=== PATIENT | female | born 1985 | race Two or more races ===

== ENCOUNTER 2016-11-20 10:20 | Inpatient (IN) | payer OTHER ==
[2016-11-18 14:39] VITALS: BMI 40.7
[~2016-11-20 10:20] MED LIST: BUPIVACAINE HCL/PF 0.5% (5MG/ML) 10 ML VIAL IJ ONE
[2016-11-20] MEDS ORDERED: BUPIVACAINE HCL/PF 0.5% (5MG/ML) 10 ML VIAL ONE (11:26)
--- NOTE | 2016-11-20 12:14 | HP ---
History & Physical Update - History History: No Change - Physical Physical: No Change - Assessment Assessment: No Change - Plan Plan: No Change Currently as noted:: Laparoscopic possible open vertical sleeve gastrectomy
[2016-11-20] MEDS ORDERED: ALBUTEROL SO4 6.7 GM HFA INHALER IH ONE (12:49)
[2016-11-20] MEDS ORDERED: ceFAZolin SODIUM 1 GM VIAL IVPB ONE (13:10)
[2016-11-20] MEDS ORDERED: ONDANSETRON 4 MG/2 ML VIAL IVPUSH PRN (14:10)
[2016-11-20] MEDS ORDERED: PROMETHAZINE HCL 25 MG/1 ML VIAL IVPUSH PRN (14:10)
[2016-11-20] MEDS ORDERED: LACTATED RINGERS SOLUTION 1,000 ML IV SCH (14:15)
[2016-11-20] MEDS ORDERED: BUPIVACAINE HCL/PF 0.5% (5MG/ML) 10 ML VIAL IJ ONE (14:33)
[2016-11-20] MEDS ORDERED: HYDROmorphone HCL CARPU-JECT 1 MG/1 ML DISP.SYRIN IVPB PRN (14:38)
--- NOTE | 2016-11-20 14:38 | OP ---
Operative Note - Note: Operative Date: 11/20/16 Pre-Operative Diagnosis: Morbid Obesity Operation: Laparoscopic vertical sleeve gastrectomy Post-Operative Diagnosis: Same as Pre-op Surgeon: Prince Hernandez Cannon Pinion Adjuster: Jae Vazquez Anesthesia: General Specimens Removed: Greater curvature of the stomach Estimated Blood Loss (mls): 30 Instrument used (Debridements only): 36 latvian bougie Operative Report Dictated: Yes
[2016-11-20] MEDS ORDERED: ONDANSETRON 4 MG/2 ML VIAL IVPB SCH (14:45)
[2016-11-20] MEDS ORDERED: SODIUM CHLORIDE 1,000 ML IV SCH ×2 (14:45→15:17)
[2016-11-20] MEDS ORDERED: ACETAMINOPHEN 1000 MG/100 ML VIAL (NON FORMULARY) IVPB SCH (14:45)
[2016-11-20] MEDS ORDERED: METOCLOPRAMIDE HCL INJECTION 10 MG/2 ML VIAL IVPB SCH (14:45)
--- NOTE | 2016-11-20 14:48 | SURG ---
Surgery Powder Nipper Note Powder Nipper: Jae Vazquez PA-C Date of Service: 11/20/16 Diagnosis: Morbid obesity Procedure: Laparoscopic vertical sleeve gastrectomy I was present for the entirety of the operative procedure. For further detail, please refer to operative report. Visit type - Case Type Case Type: Scheduled Admission - New patient This patient is new to me today: Yes Date on this admission: 11/20/16
[2016-11-20 15:30] LABS: MCH 24.3 pg (25.7-33.7); MCHC 32.2 g/dl (32.0-36.0); MEAN CELL VOLUME 75.4 fl (80-96); MEAN PLT VOLUME 8.8 fl (7.5-11.1); PLATELET COUNT 184 K/MM3 (134-434); RDW 14.8 % (11.6-15.6); WHITE BLOOD COUNT 12.1 K/mm3 (4.0-10.0)
[2016-11-20] MEDS ORDERED: HYDROmorphone HCL CARPU-JECT 2 MG/1 ML DISP.SYRIN ONE (15:37)
[2016-11-20] MEDS ORDERED: HYDROmorphone HCL CARPU-JECT 1 MG/1 ML DISP.SYRIN IVPUSH PRN (15:58)
[2016-11-20 16:00] LABS: ALBUMIN 3.4 g/dl (3.4-5.0); ALK PHOS 49 U/L (45-117); ANION GAP 13 (8-16); BILIRUBIN,TOTAL 0.2 mg/dL (0.2-1.0); CALCIUM 8.5 mg/dL (8.5-10.1); CO2 22 mmol/L (21-32); CREATININE 0.6 mg/dL (0.55-1.02); GLUCOSE,RANDOM 126 mg/dL (74-106); SGOT/AST 16 U/L (15-37); SGPT/ALT 18 U/L (12-78); TOT PROT 6.7 g/dl (6.4-8.2)
[2016-11-20] MEDS: HYDROmorphone HCL CARPU-JECT 1 MG/1 ML DISP.SYRIN IVPB PRN ×2 (18:33→21:39)
[2016-11-20] MEDS: ONDANSETRON 4 MG/2 ML VIAL IVPB SCH ×2 (18:34→21:51)
[2016-11-20] MEDS: ACETAMINOPHEN 1000 MG/100 ML VIAL (NON FORMULARY) IVPB SCH (20:28)
[2016-11-20] MEDS: METOCLOPRAMIDE HCL INJECTION 10 MG/2 ML VIAL IVPB SCH (21:09)
[2016-11-20] MEDS: FAMOTIDINE 20 MG/50 ML IVPB 50 ML IVPB SCH (21:38)
[2016-11-20] MEDS: ENOXAPARIN NA (PORCINE) 40 MG/0.4 ML DISP.SYRIN SQ SCH (21:38)
[2016-11-20] MEDS ORDERED: FAMOTIDINE 20 MG/50 ML IVPB 50 ML IVPB SCH (22:00)
[2016-11-20] MEDS ORDERED: ENOXAPARIN NA (PORCINE) 40 MG/0.4 ML DISP.SYRIN SQ SCH (22:00)
[2016-11-21] MEDS: ACETAMINOPHEN 1000 MG/100 ML VIAL (NON FORMULARY) IVPB SCH ×2 (01:20→10:37)
[2016-11-21] MEDS: HYDROmorphone HCL CARPU-JECT 1 MG/1 ML DISP.SYRIN IVPB PRN ×4 (01:21→21:08)
[2016-11-21] MEDS: ONDANSETRON 4 MG/2 ML VIAL IVPB SCH ×6 (01:24→21:17)
[2016-11-21] MEDS: METOCLOPRAMIDE HCL INJECTION 10 MG/2 ML VIAL IVPB SCH ×4 (03:00→21:09)
[2016-11-21 07:23] LABS: MCH 24.2 pg (25.7-33.7); MCHC 31.9 g/dl (32.0-36.0); MEAN CELL VOLUME 75.9 fl (80-96); MEAN PLT VOLUME 9.2 fl (7.5-11.1); PLATELET COUNT 199 K/MM3 (134-434); RDW 14.8 % (11.6-15.6); WHITE BLOOD COUNT 12.6 K/mm3 (4.0-10.0)
[2016-11-21 07:46] LABS: ALBUMIN 3.5 g/dl (3.4-5.0); ANION GAP 13 (8-16); CALCIUM 8.5 mg/dL (8.5-10.1); CO2 19 mmol/L (21-32); GLUCOSE,RANDOM 79 mg/dL (74-106)
[2016-11-21 07:50] LABS: ALK PHOS 49 U/L (45-117); BILIRUBIN,TOTAL 0.4 mg/dL (0.2-1.0); CREATININE 0.5 mg/dL (0.55-1.02); SGOT/AST 17 U/L (15-37); SGPT/ALT 19 U/L (12-78); TOT PROT 6.9 g/dl (6.4-8.2)
[2016-11-21] MEDS: ENOXAPARIN NA (PORCINE) 40 MG/0.4 ML DISP.SYRIN SQ SCH ×2 (10:03→21:17)
[2016-11-21] MEDS: FAMOTIDINE 20 MG/50 ML IVPB 50 ML IVPB SCH ×2 (10:03→21:17)
[2016-11-21] MEDS ORDERED: SODIUM CHLORIDE 1,000 ML IV SCH (10:45)
--- NOTE | 2016-11-21 12:40 | PN ---
Progress Note (short form) - Note Progress Note: POD 1 Laparoscopic vertical sleeve gastrectomy Pain controlled No nausea Vital Signs Period Temp Pulse Resp BP Sys/Looney Pulse Ox Last 24 Hr 97.6 F-98.2 F 66-101 16-20 134-148/72-92 94-100 Abd soft, dressings in place CBC, BMP 11/21/16 05:35 11/21/16 05:35 UGI - no leak, no obstruction Clears OOB D/C in am if stable
--- NOTE | 2016-11-21 12:42 | DS ---
Physical Examination Vital Signs: Vital Signs Temperature 97.6 F 11/21/16 06:00 Pulse Rate 101 H 11/21/16 06:00 Respiratory Rate 18 11/21/16 06:00 Blood Pressure 134/82 11/21/16 06:00 O2 Sat by Pulse Oximetry (%) 100 11/20/16 21:00 Constitutional: Yes: Calm Eyes: Yes: WNL HENT: Yes: WNL Neck: Yes: WNL Cardiovascular: Yes: Regular Rate and Rhythm Respiratory: Yes: Regular Gastrointestinal: Yes: Soft Extremities: Yes: WNL Wound/Incision: Yes: Clean/Dry Neurological: Yes: Alert, Oriented Labs: CBC, BMP 11/21/16 05:35 11/21/16 05:35 Discharge Summary Reason For Visit: MORBID (SEVERE) OBESITY W/ALVEOLAR HYPOVENT/SNORIN Procedures: Principal: Laparoscopic vertical sleeve gastrectomy Condition: Stable - Instructions Diet, Activity, Other Instructions: [address] [place] [address] Prince Hernandez M.D. [address] [place] [address], [address] [facility] [place] [address] Robotic, Bariatric and General Surgery Postoperative Instructions for Bariatric Surgery Activity: Resume normal everyday activity as tolerated. You may walk and climb stairs without any limitation. We encourage you to walk as often as you can Do not lift anything more than 10 pounds for 8 weeks. At that time, you can return to full activity, including the gym, without limitation. Do not drive a motor vehicle while taking prescribes narcotic pain medication. Wound Care: If you have a bandage in place, leave it on for 3 days. At that time you may remove the outer bandage. If there are strips of tape on the skin after removing the outer bandage, leave them in place. They will fall off by themselves. Do not remove them. If there is clear glue on the skin after removing the outer bandage, leave it in place. Do not pick at it or peel it off. You may shower after taking the outer bandage off, 3 days after your surgery. If incisions become red, warm or open, please call the office. Diet: Continue a sugar-free, non-carbonated Clear liquid diet three times a day for the first week-Stage I diet. In addition, you should drink 8 ounces of water every hour. When drinking, sips should be slow and steady, not large and quick. After the first week, call the office to be advanced to the next dietary stage. Do not advance stages until instructed. Your diet will be advanced over the phone each week. Medications/Pain Management: You may resume previous medications unless told otherwise. The pills may be swallowed whole or broken if scored. You may take the prescribed narcotic pain medication as needed. If the narcotic medication is not needed for pain control, you may take Tylenol. Avoid all other pain medications including Advil, Ibuprofen, Motrin, Aspirin, Naprosyn, Aleve, Celebrex. You will receive Pepcid. Please take this twice a day as prescribed. Dizziness,Headaches/Gas Pain: Make sure you are getting enough fluids daily. Patients on diuretics or water pills may need medication adjusted. Some fluids such as broth or Gatorade may help. Gas pains are common in the first few weeks after surgery. At times they can be worse than surgical pain. Walking can help. You can also use Mylanta, Maalox, or Gas-X. Vomiting/Nausea: This may occur if you eat too fast, don't chew, or eat too much. Go back to fluids. If the vomiting or nausea persists, call the office. Constipation/Diarrhea: You may experience a change in bowel habits. Many things affect this, including a decrease in food intake, not enough fluid and taking pain medication. Some people experience diarrhea after the barium swallow in x-ray. If either persist, call the office. Follow up: Call the office at [phone] for an appointment 2 weeks after your surgical procedure. Disposition: HOME - Home Medications Comprehensive Discharge Medication List: Ambulatory Orders Famotidine [Pepcid] 20 mg PO BID #60 tablet 11/20/16 Oxycodone HCl/Acetaminophen [Percocet 5-325 mg Tablet] 1 - 2 tab PO Q6H #28 tab MDD 4 11/20/16
[2016-11-21] MEDS: ACETAMINOPHEN 325 MG TABLET (FP) PO PRN ×2 (13:53→17:44)
[2016-11-21] MEDS: oxyCODONE HCL 5 MG TABLET PO PRN ×2 (13:54→17:45)
[2016-11-21] MEDS ORDERED: SIMETHICONE 80 MG TAB.CHEW (FP) PO PRN (19:37)
[2016-11-22] MEDS: HYDROmorphone HCL CARPU-JECT 1 MG/1 ML DISP.SYRIN IVPB PRN (01:11)
[2016-11-22] MEDS: ONDANSETRON 4 MG/2 ML VIAL IVPB SCH ×2 (01:14→05:54)
[2016-11-22 03:24] VITALS: BP 132/84; PULSE 56; TEMP 98.5
[2016-11-22] MEDS: METOCLOPRAMIDE HCL INJECTION 10 MG/2 ML VIAL IVPB SCH (03:30)
[2016-11-22] MEDS: ACETAMINOPHEN 325 MG TABLET (FP) PO PRN ×2 (05:56→09:17)
[2016-11-22] MEDS: oxyCODONE HCL 5 MG TABLET PO PRN ×2 (05:56→09:16)
--- NOTE | 2016-11-23 16:55 | SPEC ---
DATE OF OPERATION: 11/20/2016 SURGEON: Radha Hernandez MD MULTIPLE SCLEROSIS NURSE: RICCI Joel PREOPERATIVE DIAGNOSIS: Morbid obesity. POSTOPERATIVE DIAGNOSIS: Morbid obesity. PROCEDURE: Laparoscopic vertical sleeve gastrectomy. SPECIMEN: Greater curvature of the stomach. ESTIMATED BLOOD LOSS: 30 mL DRAINS: None. ANESTHESIA: GET. BOUGIE: Size 36-Tamazight Bougie. REASON FOR PROCEDURE: This is a 31-year-old female who presents to the office for evaluation for bariatric/weight loss options. The different options were explained. She decided to proceed with a laparoscopic, possible open vertical sleeve gastrectomy. RISKS AND BENEFITS: After describing the different options for weight loss management, the patient decided to proceed with a laparoscopic, possible open vertical sleeve gastrectomy. The patient was seen by the respective subspecialties and cleared for surgery. The risks and benefits of the procedure were explained. These included bleeding, infection, hernia, VT, DVT, PE, injury to surrounding structures including the liver, colon, bowel, spleen, esophagus, vessel injury, nerve injury, weight regain, gastric leak, staple line leak, sleeve leak, obstruction, vitamin deficiency, hair loss, and as some of the possible complications. The patient understood and signed informed consent. DESCRIPTION OF PROCEDURE: The patient was placed supine on the operating room table. The patient underwent general endotracheal intubation. A Jung catheter was inserted. The arms were brought out at 90 degrees and secured. A foot board was placed, and the legs were secured laterally with padding. The abdomen was prepped and draped in the usual sterile fashion. A timeout was performed. An incision was made in the left upper quadrant, and a Veress needle inserted. Pneumoperitoneum was established. Subsequently, the Veress needle was removed, and a 12-mm trocar was placed. The laparoscopic camera was inserted, and inspection of the abdominal cavity was performed. An incision was made in the supraumbilical region, and a 15-mm trocar placed under direct visualization. A 5-mm trocar was then placed in the right upper quadrant, and a 5-mm trocar placed below the left subcostal margin. A stab wound was made in the subxiphoid area, and a Genie clamp inserted and removed to dilate the tract. A Denzel liver retractor was inserted. The post was secured at the bedside by the nursing staff. The patient was placed in steep reverse Trendelenburg position. The Denzel liver retractor was used to secure the liver towards the anterior abdominal wall. The pylorus was identified and 6 cm proximal to it, the lesser sac was entered using the Ligasure device. All lateral attachments to the greater curvature of the stomach including the short gastric vessels were ligated using the Ligasure device toward the gastrosplenic and gastrophrenic ligaments. Once this was done in its entirety, it was confirmed that all tubes within the nasal or oropharyngeal cavity including a temperature probe was removed by Anesthesia. The bougie was then inserted by Anesthesia. Transection of the stomach was then begun staying adjacent to the bougie but away from the angularis. Transection of the stomach was performed near the portion of the stomach where the lesser sac was entered. Two laparoscopic Endo-AVERY black loads were used at this location. Laparoscopic Endo-AVERY purple loads were then used for the remainder of the transection until the greater curvature of the stomach was fully transected. This was done staying close to the bougie. Care was taken to stay away from the angle of His cephalad. The staple line was then inspected. Hemostasis was identified. A leak test was then performed. The stomach was clamped distally to the staple line. Irrigation solution was placed in the left upper quadrant, and air insufflated by Anesthesia into the sleeve. No leaks were identified, and no obstruction was identified. This was done throughout the entirety of the staple line. At this point, the irrigation solution was suctioned, and again hemostasis noted. The 15-mm supraumbilical trocar was then removed, and the specimen removed from the site using a sponge stick cheek. The specimen was inspected, and a Veress needle inserted. The specimen insufflated adequately, and no leak was identified. The staple line was noted to be intact. A Antelmo Asya device was then used to temporarily close the fascia with a 0 Vicryl suture at this site. The 15-mm trocar was then reinserted, and the 12-mm trocar in the left upper quadrant removed. The fascia at this site was then closed using a Antelmo Asya device with a 0 Vicryl suture. Again, hemostasis was noted. The Denzel liver retractor was then removed under direct visualization. Pneumoperitoneum was desufflated, and the fascial sutures were secured. Hemostasis was noted at all incision sites, and Marcaine was injected at all incision sites. All incision sites were closed using 4-0 Biosyn. Sterile dressings were applied. The patient tolerated the procedure well, and was transferred to the recovery room in stable condition with the Jung catheter intact. The patient was transferred to telemetry for further monitoring. RADHA HERNANDEZ M.D. [id number]
--- NOTE | 2016-11-24 12:24 | PATH ---
Surgical Pathology Report Patient Name: LYSSA BIRD [facility]. Rec. #: [id number] /Age/Gender: 1985 (Age: 31) / F Account: [id number] Location: 4 W TELEMETRY U Taken: 11/20/2016 Received: 11/21/2016 Reported: 11/24/2016 Physicians: Prince Hernandez M.D. Specimen(s) Received GREATER CURVATURE OF STOMACH Clinical History Morbid obesity Final Diagnosis STOMACH, GREATER CURVATURE, LAPAROSCOPIC VERTICAL SLEEP GASTRECTOMY: PORTION OF STOMACH WITH MODERATE CHRONIC GASTRITIS AND FOCAL MUCOSAL HEMORRHAGE. IMMUNOSTAIN FOR H. PYLORI IS POSITIVE FOR ORGANISMS (RARE ORGANISMS). Electronically Signed Gonzalo Lundberg M.D. Gross Description Received in formalin, labeled "greater curvature of stomach" is a 195 gram, 21.0 x 5.0 x 3.5 cm portion of stomach with a stapled margin of resection. The serosa is lantigua-ott with minimal attached fat. The mucosa is lantigua- brown and focally hemorrhagic with preserved folds. No mucosal masses are identified. Data Warehouse Administrator sections are submitted in one cassette. /11/21/2016 [facility]11/21/2016
== END 2016-11-22 10:45 | disposition home or self-care (01) | DRG 403 ==
LOC: JASUSAT 10:20 → JSAMEDAYSX 14:38 → J4W 17:15
PROVIDERS: ADMIT Surgery; ATTEND Surgery
PROC: 0DB64Z3 Excision of Stomach, Percutaneous Endoscopic Approach, Vertical (ICD-10-PCS; principal; 2016-11-20 12:00)
DX: E66.01 Morbid (severe) obesity due to excess calories (principal); Z68.41 Body mass index [BMI] 40.0-44.9, adult
CPT/HCPCS: 36415; 74241-TC; 80053; 84703; 85027; 86850; 86900; 86901; 88305-TC; 94760

== ENCOUNTER 2019-02-11 07:01 | Emergency (ER) | payer OTHER ==
[2019-02-11 07:25] VITALS: BP 103/69; PULSE 75; TEMP 98.7; BMI 24.3
--- NOTE | 2019-02-11 07:56 | PDOC ---
History of Present Illness - General Chief Complaint: Wound Stated Complaint: FINGER SWELLING Time Seen by Provider: 02/11/19 07:50 History Source: Patient Exam Limitations: No Limitations - History of Present Illness Initial Comments: 02/11/19 09:26 33-year-old female presents to ED with painful left third digit along with swelling and mild redness to the tip of her finger. Patient states often bites her nails and has had this once before which she states had drained pus. Patient denies history of diabetes or immunosuppression . patient denies injury to area Timing/Duration: reports: other (2 days ago) Severity: Yes: mild Location: reports: hands Associated Symptoms: reports: other (redness and swelling left 3rd digit) Past History - Travel Traveled outside of the country in the last 30 days: No - Past Medical History Allergies/Adverse Reactions: Allergies Allergy/AdvReac Type Severity Reaction Status Date / Time No Known Allergies Allergy Verified 02/11/19 07:19 Home Medications: Ambulatory Orders NK [No Known Home Medication] 02/11/19 Anemia: No Asthma: No Cancer: No Cardiac Disorders: No CVA: No COPD: No CHF: No Dementia: No Diabetes: No GI Disorders: No Disorders: No HTN: No Hypercholesterolemia: Yes Liver Disease: No Seizures: No Thyroid Disease: No - Surgical History Orthopedic Surgery: Yes (fx clavicle) - Immunization History Immunization Up to Date: Yes - Psycho Social/Smoking Cessation Hx Smoking Status: Yes Smoking History: Smoker current status UNK Have you smoked in the past 12 months: Yes Number of Cigarettes Smoked Daily: 20 If you are a former smoker, when did you quit?: october 2016 'Breaking Loose' booklet given: 09/17/15 Hx Alcohol Use: No Drug/Substance Use Hx: No Substance Use Type: None Hx Substance Use Treatment: No Patient Lives Alone: No Lives with/in: family Review of Systems - Review of Systems Able to Perform ROS?: Yes Constitutional: No: Symptoms Reported Integumentary: Yes: Erythema, Other (swelling) Endocrine: No: Symptoms Reported Hematologic/Lymphatic: No: Symptoms Reported *Physical Exam - Vital Signs Last Vital Signs Temp Pulse Resp BP Pulse Ox 98.7 F 75 16 103/69 99 02/11/19 07:22 02/11/19 07:22 02/11/19 07:22 02/11/19 07:22 02/11/19 07:22 - Physical Exam General Appearance: Yes: Nourished, Appropriately Dressed. No: Apparent Distress Integumentary: positive: Other (erythamatous and edamtous left 3rd digit aroung cuticle bed) Neurologic: positive: Motor Strength 5/5 (ambulatory) Medical Decision Making - Medical Decision Making 02/11/19 07:54 Chief complaint: Left third digit with swelling and redness with pain to the surrounding area Exam: Erythematous edematous area surrounding the left third digit cuticle bed Plan: Lift the cuticle bed using 11 blade scalpel without difficult. no drainage noted but small opening made to promote drainage. Patient placed in warm to hot water to soak finger and recommended the same for home. Discharge - Discharge Information Problems reviewed: Yes Clinical Impression/Diagnosis: Paronychia Condition: Good Disposition: HOME - Follow up/Referral Referrals: Jamie Carter MD [Primary Care Provider] - - Patient Discharge Instructions Patient Printed Discharge Instructions: DI for Paronychia Additional Instructions: Please continue to soak your finger for at least 4-5 times a day of 15 minutes of constant heat to promote any drainage. Do not pick at area wear gloves when touching dirty stuff and wash hands frequently. If symptoms do not improve and worsen we you noticed a white rim surrounding the cuticle and more swelling with tenderness please return to the ED - Post Discharge Activity
== END 2019-02-11 08:00 | disposition home or self-care (01) ==
LOC: JER 07:01
PROC: 0H9QXZZ Drainage of Finger Nail, External Approach (ICD-10-PCS; principal; 2019-02-11)
DX: L03.012 Cellulitis of left finger (principal); E78.00 Pure hypercholesterolemia, unspecified
CPT/HCPCS: 10060; 99281-25